=== PATIENT | female | born 1980 | race Caucasian/White ===

== ENCOUNTER → 2019-12-26 11:22 | Outpatient (BNVA) | payer OTHER, SELFPAY | PROVIDERS: PCP Internal Medicine; Visit Provider Nurse Practitioner Psychiatric/Mental Health | DX: F11.20 Opioid dependence, uncomplicated (principal); F14.10 Cocaine abuse, uncomplicated; F41.9 Anxiety disorder, unspecified | CPT/HCPCS: 99213 ==

== ENCOUNTER → 2020-01-16 14:43 | Outpatient (BNVA) | payer OTHER, SELFPAY | PROVIDERS: Visit Provider Nurse Practitioner Psychiatric/Mental Health | DX: F14.10 Cocaine abuse, uncomplicated (principal); F11.99 Opioid use, unspecified with unspecified opioid-induced disorder | CPT/HCPCS: 99213 ==

== ENCOUNTER → 2020-01-30 15:14 | Outpatient (BNVA) | payer OTHER, SELFPAY | PROVIDERS: Visit Provider Nurse Practitioner Psychiatric/Mental Health | DX: Z76.89 Persons encountering health services in other specified circumstances (principal) ==

== ENCOUNTER → 2020-02-06 14:47 | Outpatient (BNVA) | payer OTHER, SELFPAY | PROVIDERS: Visit Provider Nurse Practitioner Psychiatric/Mental Health | DX: F11.99 Opioid use, unspecified with unspecified opioid-induced disorder (principal); F14.10 Cocaine abuse, uncomplicated | CPT/HCPCS: 80305; 99212 ==

== ENCOUNTER → 2020-02-13 16:30 | Outpatient (BNVA) | payer OTHER, SELFPAY | PROVIDERS: PCP Internal Medicine; Visit Provider Nurse Practitioner Psychiatric/Mental Health | DX: Z76.89 Persons encountering health services in other specified circumstances (principal) ==

== ENCOUNTER → 2020-02-27 16:18 | Outpatient (BNVA) | payer OTHER, SELFPAY | PROVIDERS: Visit Provider Nurse Practitioner Psychiatric/Mental Health | DX: Z76.89 Persons encountering health services in other specified circumstances (principal) ==

== ENCOUNTER → 2020-03-05 15:34 | Outpatient (BNVA) | payer OTHER, SELFPAY | PROVIDERS: Visit Provider Nurse Practitioner Psychiatric/Mental Health | DX: Z76.89 Persons encountering health services in other specified circumstances (principal) ==

== ENCOUNTER → 2020-03-26 14:22 | Outpatient (BNVA) | payer OTHER, SELFPAY | PROVIDERS: Visit Provider Nurse Practitioner Psychiatric/Mental Health | DX: Z76.89 Persons encountering health services in other specified circumstances (principal) ==

== ENCOUNTER → 2020-04-02 14:02 | Outpatient (BNVA) | payer OTHER, SELFPAY | PROVIDERS: Visit Provider Nurse Practitioner Psychiatric/Mental Health | DX: F11.99 Opioid use, unspecified with unspecified opioid-induced disorder (principal) | CPT/HCPCS: 99212 ==

== ENCOUNTER → 2020-04-16 10:56 | Outpatient (BNVA) | payer OTHER, SELFPAY | PROVIDERS: Visit Provider Nurse Practitioner Psychiatric/Mental Health ==

== ENCOUNTER → 2020-04-23 15:49 | Outpatient (BNVA) | payer OTHER, SELFPAY | PROVIDERS: PCP Internal Medicine; Visit Provider Nurse Practitioner Psychiatric/Mental Health | DX: Z76.89 Persons encountering health services in other specified circumstances (principal) ==

== ENCOUNTER → 2020-05-07 14:35 | Outpatient (BNVA) | payer OTHER, SELFPAY | PROVIDERS: PCP Internal Medicine; Visit Provider Nurse Practitioner Psychiatric/Mental Health ==

== ENCOUNTER → 2020-05-21 11:45 | Outpatient (BNVA) | payer OTHER, SELFPAY | PROVIDERS: PCP Internal Medicine; Visit Provider Nurse Practitioner Psychiatric/Mental Health ==

== ENCOUNTER → 2020-06-04 13:17 | Outpatient (BNVA) | payer OTHER, SELFPAY | PROVIDERS: PCP Internal Medicine; Visit Provider Nurse Practitioner Psychiatric/Mental Health ==

== ENCOUNTER → 2020-06-22 13:32 | Outpatient (BNVA) | payer OTHER, SELFPAY | PROVIDERS: Visit Provider Nurse Practitioner Psychiatric/Mental Health | DX: F14.90 Cocaine use, unspecified, uncomplicated (principal) | CPT/HCPCS: 80305; 81025; 99211 ==

== ENCOUNTER → 2020-07-09 15:36 | Outpatient (BNVA) | payer OTHER, SELFPAY | PROVIDERS: Visit Provider Nurse Practitioner Psychiatric/Mental Health ==

== ENCOUNTER → 2020-07-23 16:37 | Outpatient (BNVA) | payer OTHER, SELFPAY | PROVIDERS: Visit Provider Nurse Practitioner Psychiatric/Mental Health ==

== ENCOUNTER → 2020-07-24 13:05 | Outpatient (BNVA) | payer OTHER, SELFPAY | PROVIDERS: Visit Provider Nurse Practitioner Psychiatric/Mental Health | DX: Z51.81 Encounter for therapeutic drug level monitoring (principal) | CPT/HCPCS: 80305; 99211 ==

== ENCOUNTER → 2020-08-06 14:39 | Outpatient (BNVA) | payer OTHER, SELFPAY | PROVIDERS: Visit Provider Nurse Practitioner Psychiatric/Mental Health ==

== ENCOUNTER → 2020-08-27 15:08 | Outpatient (BNVA) | payer OTHER, SELFPAY | PROVIDERS: Visit Provider Nurse Practitioner Psychiatric/Mental Health ==

== ENCOUNTER → 2020-09-17 15:16 | Outpatient (BNVA) | payer OTHER, SELFPAY | PROVIDERS: Visit Provider Nurse Practitioner Psychiatric/Mental Health ==

== ENCOUNTER → 2020-10-08 14:49 | Outpatient (BNVA) | payer OTHER, SELFPAY | PROVIDERS: Visit Provider Nurse Practitioner Psychiatric/Mental Health ==

== ENCOUNTER → 2020-10-15 15:28 | Outpatient (BNVA) | payer OTHER, SELFPAY | PROVIDERS: Visit Provider Nurse Practitioner Psychiatric/Mental Health | DX: F11.99 Opioid use, unspecified with unspecified opioid-induced disorder (principal); F14.10 Cocaine abuse, uncomplicated | CPT/HCPCS: 80305; 81025; 99212 ==

== ENCOUNTER → 2020-11-12 14:02 | Outpatient (BNVA) | payer OTHER, SELFPAY | PROVIDERS: Visit Provider Nurse Practitioner Psychiatric/Mental Health ==

== ENCOUNTER → 2021-01-14 15:48 | Outpatient (BNVA) | payer OTHER, SELFPAY | PROVIDERS: Visit Provider Nurse Practitioner Psychiatric/Mental Health | DX: F11.20 Opioid dependence, uncomplicated (principal); F14.10 Cocaine abuse, uncomplicated; Z51.81 Encounter for therapeutic drug level monitoring; Z79.899 Other long term (current) drug therapy | CPT/HCPCS: 80305; 99212 ==

== ENCOUNTER → 2021-02-25 15:22 | Outpatient (BNVA) | payer OTHER, SELFPAY | PROVIDERS: Visit Provider Nurse Practitioner Psychiatric/Mental Health ==

== ENCOUNTER → 2021-04-12 15:38 | Outpatient (BNVA) | payer OTHER, SELFPAY | DX: Z51.81 Encounter for therapeutic drug level monitoring (principal) | CPT/HCPCS: 80305 ==

== ENCOUNTER → 2021-06-03 14:10 | Outpatient (BNVA) | payer OTHER, SELFPAY | PROVIDERS: Visit Provider Nurse Practitioner Psychiatric/Mental Health | DX: F11.20 Opioid dependence, uncomplicated (principal) | CPT/HCPCS: 80305; 99212 ==

== ENCOUNTER → 2021-08-05 15:30 | Outpatient (BNVA) | payer OTHER, SELFPAY | PROVIDERS: Visit Provider Nurse Practitioner Psychiatric/Mental Health | DX: Z51.81 Encounter for therapeutic drug level monitoring (principal); F11.20 Opioid dependence, uncomplicated | CPT/HCPCS: 80305; 99212 ==

== ENCOUNTER → 2021-10-26 16:30 | Outpatient (BNVA) | payer OTHER, SELFPAY | PROVIDERS: Visit Provider Nurse Practitioner Psychiatric/Mental Health | DX: F11.20 Opioid dependence, uncomplicated (principal) | CPT/HCPCS: 99212 ==

== ENCOUNTER → 2022-01-19 13:03 | Outpatient (BNVA) | payer OTHER, SELFPAY | PROVIDERS: Visit Provider Nurse Practitioner Psychiatric/Mental Health | DX: Z51.81 Encounter for therapeutic drug level monitoring (principal); F11.20 Opioid dependence, uncomplicated; F14.10 Cocaine abuse, uncomplicated | CPT/HCPCS: 80305; 99212 ==

== ENCOUNTER → 2022-02-24 11:35 | Outpatient (BNVA) | payer OTHER, SELFPAY | PROVIDERS: Visit Provider Nurse Practitioner Psychiatric/Mental Health | DX: Z51.81 Encounter for therapeutic drug level monitoring (principal); F11.20 Opioid dependence, uncomplicated | CPT/HCPCS: 80305; 99212 ==

== ENCOUNTER 2022-07-12 19:49 | Emergency (ER) | payer OTHER, SELFPAY ==
--- NOTE | ~2022-07-12 | US_ITS ---
EXAMINATION: US VENOUS ULTRASOUND WITH DOPPLER LOWER EXTREMITY, BILATERAL CLINICAL INFORMATION: Edema. Pain. COMPARISON: None available. TECHNIQUE: Ultrasound of the deep veins is performed from the hip to the calf with compression sonography and color and pulse Doppler assessment. Spectral analysis with color-flow imaging is performed. FINDINGS: RIGHT: There is normal venous compression and respiratory variation and augmented flow. The visualized common femoral vein, superficial femoral vein, profunda femoral vein, popliteal vein, and the trifurcation region shows no evidence of deep venous thrombosis. There is normal vascular flow in the posterior tibial vein and the peroneal vein in the calf. There is no significant popliteal fossa cyst. LEFT: There is normal venous compression and respiratory variation and augmented flow. The visualized common femoral vein, superficial femoral vein, profunda femoral vein, popliteal vein, and the trifurcation region shows no evidence of deep venous thrombosis. There is normal vascular flow in the posterior tibial vein of the calf. The peroneal vein is not visualized. There is no significant popliteal fossa cyst. If the patient's symptoms persist, followup ultrasound in 5 days 7 days might be of value to exclude proximal propagation from a non-visualized calf vein. US/US venous duplex LE BI IMPRESSION: No DVT demonstrated in the bilateral lower extremity.
--- NOTE | ~2022-07-12 | XR_ITS ---
EXAMINATION: Bilateral knee x-ray CLINICAL INFORMATION: Pain COMPARISON: None. TECHNIQUE: 2 views of each knee FINDINGS: Right: Bone alignment is normal. No acute fracture or dislocation. Well-corticated soft tissue ossification adjacent to the inferior patella. Normal joint spaces. Question small joint effusion. Left: Bone alignment is normal. No fracture or dislocation. Normal joint spaces. Question moderate joint effusion. XR/XR knee RT 2V IMPRESSION: No fracture or dislocation. Question bilateral knee joint effusions.
--- NOTE | ~2022-07-12 | XR_ITS ---
EXAMINATION: Bilateral knee x-ray CLINICAL INFORMATION: Pain COMPARISON: None. TECHNIQUE: 2 views of each knee FINDINGS: Right: Bone alignment is normal. No acute fracture or dislocation. Well-corticated soft tissue ossification adjacent to the inferior patella. Normal joint spaces. Question small joint effusion. Left: Bone alignment is normal. No fracture or dislocation. Normal joint spaces. Question moderate joint effusion. XR/XR knee LT 2V IMPRESSION: No fracture or dislocation. Question bilateral knee joint effusions.
[2022-07-12 19:51] VITALS: BP 130/69; PULSE 87; RESP 18; TEMP 36.6; O2SAT 100; BMI 27.4
--- NOTE | 2022-07-12 19:52 | ED.EXTPRO ---
HPI - Extremity Problem General Chief complaint: Extremity Problem <ARSENIO Seo - Last Filed: 07/12/22 19:55> Stated complaint: Lower extremities swelling <ARSENIO Seo - Last Filed: 07/12/22 19:55> Time Seen by Provider: 07/12/22 23:26 <ARSENIO Seo - Last Filed: 07/12/22 19:55> Source: patient and design and sales consultant ([id number]) <Narda Byrnes MD - Last Filed: 07/13/22 01:13> Mode of arrival: ambulatory <Narda Byrnes MD - Last Filed: 07/13/22 01:13> History of Present Illness HPI Narrative: This is a 41-year-old female who comes in with worsening bilateral lower extremity edema that is painful in nature, she denies any recent trauma or travel. On questioning regarding medical history she reports that she does have heavy periods but the last 1 was in April and denies any current sexual activity. Patient reports that she does have a history of anemia as well as using intranasal heroin and cocaine. Otherwise, she denies any fever or chills. <Narda Byrnes MD - Last Filed: 07/13/22 01:13> Related Data Home medications: Home Medications Medication Instructions Recorded Confirmed naloxone 4 mg/actuation nasal spray intranasal 12/26/19 12/26/19 Previous Rx's Medication Instructions Recorded ferrous sulfate 325 mg (65 mg 325 mg PO DAILY #30 tabs 06/03/21 iron) tablet buprenorphine 8 mg-naloxone 2 mg 1 film sublingual BID #16 ea 04/04/22 sublingual film ferrous sulfate 325 mg (65 mg 325 mg PO BID #60 tabs 07/13/22 iron) tablet <ARSENIO Seo - Last Filed: 07/12/22 19:55> Allergies/Adverse reactions: Allergies Allergy/AdvReac Type Severity Reaction Status Date / Time ibuprofen [IBUPROFEN] Allergy Severe RASH Verified 02/24/22 11:48 naproxen [From Naprosyn] AdvReac Rash Verified 02/24/22 11:48 <ARSENIO Seo - Last Filed: 07/12/22 19:55> Review of Systems Review of Systems: Pertinent positives and negatives as stated in HPI <Narda Byrnes MD - Last Filed: 07/13/22 01:13> PMFSH Past Medical History Source: nursing notes reviewed <Narda Byrnes MD - Last Filed: 07/13/22 01:13> Medical History: Medical History Denial <ARSENIO Seo - Last Filed: 07/12/22 19:55> Family History Family History: Family History Mother HTN (hypertension) Diabetes Thyroid disease Other Asthma <ARSENIO Seo - Last Filed: 07/12/22 19:55> Social History Social History: Social History Alcohol intake: current Alcohol intake frequency: holidays/special occasions only Cigarettes Per Day: 10 Years Smoked: 3 Smoked in Last 30 Days: Yes Use of substances other than those prescribed or required for medical reasons: Yes Substance Use Type: Crack/Cocaine and Heroin Last Used Substance: Days (ago) Any prior treatment program specific to substance use: No Advance Directives: No Advance Directives Information Provided: Yes <ARSENIO Seo - Last Filed: 07/12/22 19:55> Physical Exam Vital Signs: Vital Signs: Last Vital Signs Temp 98 F 07/12/22 19:51 Pulse 87 07/12/22 19:51 Resp 18 07/12/22 19:51 BP 130/69 07/12/22 19:51 Pulse Ox 100 07/12/22 19:51 O2 Del Method Room Air 07/12/22 19:51 BMI result Body Mass Index 27.4 <ARSENIO Seo - Last Filed: 07/12/22 19:55> Vital Signs: Last Vital Signs Temp 98 F 07/12/22 19:51 Pulse 87 07/12/22 19:51 Resp 18 07/12/22 19:51 BP 130/69 07/12/22 19:51 Pulse Ox 100 07/12/22 19:51 O2 Del Method Room Air 07/12/22 19:51 BMI result Body Mass Index 27.4 VITAL SIGNS: Reviewed. GENERAL: Well developed, well nourished, in no acute distress. HEAD: Normocephalic/atraumatic EYES: PERRLA, EOMI, pale conjunctiva EARS: Ext canals without abnormality NOSE: Nares patent bilateral OROPHARYNX: no oral lesions noted, posterior pharynx clear, pale mucosa NECK: Supple, no adenopathy LUNGS: Normal breath sounds. No adventitious sounds or accessory muscle use. SpO2<100> CARDIOVASCULAR: Regular rate and rhythm without noted murmurs ABDOMEN: Soft, non-tender, non-distended with bowel sounds. MUSCULOSKELETAL: No tenderness, deformities, or effusions noted on gross inspection. EXTREMITIES: No cyanosis, clubbing but bilateral lower extremity edema that is minimally pitting some associated erythema to the left lower extremity but otherwise legs are with good sensation and palpable pulses SKIN: Inspection of the skin reveals no rashes, but pale NEUROLOGIC: Alert and oriented x 4. Strength and sensation to light touch were grossly intact x 4. <Narda Byrnes MD - Last Filed: 07/13/22 01:13> Course Course Course Narrative: This is an RME: Additional HPI, ROS, PE not included below will be deferred to primary provider. This is a 41-year-old female presenting to the emergency department for complaints of bilateral knee pain times a few days worsening, worse with movement better at rest. Patient also notes bilateral lower extremities have been more swollen than usual, her left lower extremity is bothering her more than her right. She does report a week ago she fell however she fell onto her bottom, no head strike or loss of consciousness. On physical exam left lower extremity is noted to have some erythema and warmth below the knee all the way to the ankle w/ a tense leg. NV status intact bl. There does appear to be 1+ nonpitting edema to bilateral lower extremities. Negative Roshan bilaterally. Plan bilateral knee x-rays and venous duplex of lower extremities. However likely cellulitis <ARSENIO Seo - Last Filed: 07/12/22 19:55> Medical Decision Making Medical Decision Making MDM Narrative: 41-year-old female with history and clinical presentation consistent with menorrhagia as well as sickle cell trait on review of [facility] records. I suspect that the bilateral lower extremity edema it may be contributed due to the anemia as well as low albumin level. I had an extensive conversation with the patient after review of all investigations demonstrates that patient is significantly anemic with hemoglobin-6.8. Although patient states that she is fatigued review of lab work demonstrates that she is not tachycardic and at this time she is adamantly declining any blood transfusion. In attempts to further investigate what some of her concerns or reservations are and she simply states I do not want the transfusion . Once again, to be clear this was all conducted via gate services supervisor [id number]. She is otherwise hemodynamically stable, she is alert and oriented x4. Imaging studies are negative for acute DVT and I placed Handy wraps to bilateral lower extremities to assist in symptomatic relief. She is otherwise discharged home with a referral to follow-up with gynecology despite patient declining the referral stating that she already has someone that she is going to follow-up with. <Narda Byrnes MD - Last Filed: 07/13/22 01:13> Differential Diagnosis Please see the discussion above <Narda Byrnes MD - Last Filed: 07/13/22 01:13> Lab Data Please see the discussion above <Narda Byrnes MD - Last Filed: 07/13/22 01:13> Result Diagrams: 07/13/22 00:14 07/13/22 00:14 <ARSENIO Seo - Last Filed: 07/12/22 19:55> Labs: Lab Results 07/13/22 07/13/22 07/13/22 Range/Units 00:14 00:14 00:14 WBC 9.3 (4.8-10.8) X10*3/uL RBC 3.88 L (4.20-5.50) X10*6/uL Hgb 6.8 L* (12.0-16.0) g/dl Hct 23.3 L (37.0-47.0) % MCV 60.1 L (80.0-98.0) fL MCH 17.5 L (27.0-33.0) pg MCHC 29.2 L (31.0-35.0) g/dl RDW 19.7 H (11.0-16.0) % Plt Count 401 H (160-400) X10*3/uL MPV 9.7 (9.4-12.3) fL Immature Gran % (Auto) 0.3 (0.0-0.4) % Neut % (Auto) 66.2 (45-73) % Lymph % (Auto) 25.2 (20-40) % [place] % (Auto) 5.8 (2-11) % Eos % (Auto) 2.1 (0-4) % Baso % (Auto) 0.4 (0-2) % Lymph # (Auto) 2.4 (1.2-4.9) X10*3/uL [place] # (Auto) 0.5 (0.1-1.2) X10*3/uL Eos # (Auto) 0.2 (0.0-0.4) X10*3/uL Baso # (Auto) 0.0 (0.0-0.2) X10*3/uL Abs Immat Gran (auto) 0.03 (0.00-0.03) X10*3/uL Absolute Neuts (auto) 6.2 (2.0-8.3) x10*3/uL Absolute Nucleated RBC 0.000 (0.0-0.012) X10*3/uL Nucleated RBC % (auto) 0.0 (0.0-0.2) /100WBC Sodium 138 (135-145) mmol/L Potassium 3.8 (3.3-5.1) mmol/L Chloride 104 (96-108) mmol/L Carbon Dioxide 28 (22-29) mmol/L Anion Gap 10 L (12-20) BUN 6 L (9-16) mg/dL Creatinine 0.52 (0.5-1.4) mg/dL Estim Creat Clear Calc 150.8 Estimated GFR > 60 Random Glucose 88 (60-115) mg/dL Calcium 8.6 (8.4-10.2) mg/dL Total Bilirubin 0.3 (0.0-1.0) mg/dL AST 38 H (5-31) U/L ALT 37 H (0-31) U/L Alkaline Phosphatase 75 (39-117) U/L Total Protein 6.6 (6.5-8.0) g/dL Albumin 3.3 L (3.5-5.0) g/dL Urine Color Yellow Urine Appearance Clear Urine pH 7.0 (5.0-9.0) Ur Specific [place] 1.010 (1.005-1.025) Urine Protein Negative (Neg-Trace) mg/dL Urine Glucose (UA) Negative (Negative) mg/dL Urine Ketones Negative (Negative) mg/dL Urine Blood Trace H (Negative) Urine Nitrite Negative (Negative) Ur Leukocyte Esterase Negative (Negative) Urine RBC 3-5 H (0-2) /HPF Urine WBC 0-5 (0-5) /HPF Ur Squamous Epith Cells 0-2 (0-2) /HPF Urine Bacteria None Seen (None Seen) Hyaline Casts 0-2 (0-2) /LPF <ARSENIO Seo - Last Filed: 07/12/22 19:55> Lab Results 07/13/22 07/13/22 07/13/22 Range/Units 00:14 00:14 00:14 WBC 9.3 (4.8-10.8) X10*3/uL RBC 3.88 L (4.20-5.50) X10*6/uL Hgb 6.8 L* (12.0-16.0) g/dl Hct 23.3 L (37.0-47.0) % MCV 60.1 L (80.0-98.0) fL MCH 17.5 L (27.0-33.0) pg MCHC 29.2 L (31.0-35.0) g/dl RDW 19.7 H (11.0-16.0) % Plt Count 401 H (160-400) X10*3/uL MPV 9.7 (9.4-12.3) fL Immature Gran % (Auto) 0.3 (0.0-0.4) % Neut % (Auto) 66.2 (45-73) % Lymph % (Auto) 25.2 (20-40) % [place] % (Auto) 5.8 (2-11) % Eos % (Auto) 2.1 (0-4) % Baso % (Auto) 0.4 (0-2) % Lymph # (Auto) 2.4 (1.2-4.9) X10*3/uL [place] # (Auto) 0.5 (0.1-1.2) X10*3/uL Eos # (Auto) 0.2 (0.0-0.4) X10*3/uL Baso # (Auto) 0.0 (0.0-0.2) X10*3/uL Abs Immat Gran (auto) 0.03 (0.00-0.03) X10*3/uL Absolute Neuts (auto) 6.2 (2.0-8.3) x10*3/uL Absolute Nucleated RBC 0.000 (0.0-0.012) X10*3/uL Nucleated RBC % (auto) 0.0 (0.0-0.2) /100WBC Sodium 138 (135-145) mmol/L Potassium 3.8 (3.3-5.1) mmol/L Chloride 104 (96-108) mmol/L Carbon Dioxide 28 (22-29) mmol/L Anion Gap 10 L (12-20) BUN 6 L (9-16) mg/dL Creatinine 0.52 (0.5-1.4) mg/dL Estim Creat Clear Calc 150.8 Estimated GFR > 60 Random Glucose 88 (60-115) mg/dL Calcium 8.6 (8.4-10.2) mg/dL Total Bilirubin 0.3 (0.0-1.0) mg/dL AST 38 H (5-31) U/L ALT 37 H (0-31) U/L Alkaline Phosphatase 75 (39-117) U/L Total Protein 6.6 (6.5-8.0) g/dL Albumin 3.3 L (3.5-5.0) g/dL Urine Color Yellow Urine Appearance Clear Urine pH 7.0 (5.0-9.0) Ur Specific [place] 1.010 (1.005-1.025) Urine Protein Negative (Neg-Trace) mg/dL Urine Glucose (UA) Negative (Negative) mg/dL Urine Ketones Negative (Negative) mg/dL Urine Blood Trace H (Negative) Urine Nitrite Negative (Negative) Ur Leukocyte Esterase Negative (Negative) Urine RBC 3-5 H (0-2) /HPF Urine WBC 0-5 (0-5) /HPF Ur Squamous Epith Cells 0-2 (0-2) /HPF Urine Bacteria None Seen (None Seen) Hyaline Casts 0-2 (0-2) /LPF <Narda Byrnes MD - Last Filed: 07/13/22 01:13> Radiology Impression Radiologist Impression: My interpretation is in agreement with radiology's impression of the imaging studies. <Narda Byrnes MD - Last Filed: 07/13/22 01:13> Chronic Conditions Patient?s care impacted by: Other <Narda Byrnes MD - Last Filed: 07/13/22 01:13> Sickle cell trait, anemia <Narda Byrnes MD - Last Filed: 07/13/22 01:13> Discharge Plan Discharge Clinical Impression: Opioid use disorder, Cocaine use disorder, Heavy menstrual bleeding, Anemia, Sickle cell trait, Swelling of both lower extremities <ARSENIO Seo - Last Filed: 07/12/22 19:55> Patient Disposition: Home, Self-Care <ARSENIO Seo - Last Filed: 07/12/22 19:55> Instructions: Leg Edema (ED), Polysubstance Abuse (ED), Menorrhagia (ED), Anemia (ED) <ARSENIO Seo - Last Filed: 07/12/22 19:55> Additional Instructions: 1. Reanudar todos los medicamentos caseros seg?n lo prescrito. Aumente la cantidad de agua que anette. 2. He enviado mick receta para suplementos de jaya a long farmacia. Por favor, tome seg?n lo prescrito. 3. Myriam un seguimiento con long proveedor de atenci?n primaria en los pr?ximos 1 o 2 d?as. 4. He proporcionado mick remisi?n a G[facility]olog?a, se encuentra a continuaci?n. Llame a la oficina ma?erika por la ma?erika y programe mick aram para mick reevaluaci?n de long menorragia. Regrese a la chuyita de emergencias si los s?ntomas empeoran. 1. Resume all home medications as prescribed. Increase the amount of water that you drink. 2. I have sent a prescription for iron supplements over to your pharmacy. Please take as prescribed. 3. Please follow-up with your primary care provider in the next 1-2 days. 4. I have provided a referral to Gynecology, it is below. Please call the office tomorrow morning and set up an appointment for re-evaluation regarding your menorrhagia. Return to the ER for any worsening symptoms. <ARSENIO Seo - Last Filed: 07/12/22 19:55> Prescriptions: New ferrous sulfate 325 mg (65 mg iron) tablet 325 mg PO BID Qty: 60 0RF No Action buprenorphine-naloxone 8-2 mg film 1 film sublingual BID Qty: 16 0RF Narcan 4 mg/actuation spray,non-aerosol intranasal ferrous sulfate 325 mg (65 mg iron) tablet 325 mg PO DAILY Qty: 30 0RF <ARSENIO Seo - Last Filed: 07/12/22 19:55> Referrals: Mak Fitch MD [Physician] - (41-year-old female with history of sickle cell trait, presents with anemia and Hgb -6.8 but refuses blood.) <ARSENIO Seo - Last Filed: 07/12/22 19:55> Stand Alone Forms: Against Medical Advice <ARSENIO Seo - Last Filed: 07/12/22 19:55> Print Language: Indonesian <ARSENIO Seo - Last Filed: 07/12/22 19:55>
[2022-07-13 00:19] LABS: Basophils Percent Auto 0.4 % (0-2); Eosinophils Absolute Auto 0.2 X10*3/uL (0.0-0.4); Eosinophils Percent Auto 2.1 % (0-4); Hematocrit 23.3 % (37.0-47.0); Imm Gran Abs Auto 0.03 X10*3/uL (0.00-0.03); Imm Gran Pct Auto 0.3 % (0.0-0.4); Lymphocytes Absolute Auto 2.4 X10*3/uL (1.2-4.9); Lymphocytes Percent Auto 25.2 % (20-40); MANUAL DIFF FLAG NO; Mean Corpuscular HGB Conc 29.2 g/dl (31.0-35.0); Mean Corpuscular Hemoglobin 17.5 pg (27.0-33.0); Mean Platelet Volume 9.7 fL (9.4-12.3); Monocytes Absolute Auto 0.5 X10*3/uL (0.1-1.2); Monocytes Percent Auto 5.8 % (2-11); Neutrophils Absolute Auto 6.2 x10*3/uL (2.0-8.3); Neutrophils Percent Auto 66.2 % (45-73); Platelet Count 401 X10*3/uL (160-400); Red Blood Count 3.88 X10*6/uL (4.20-5.50); Red Cell Distribution Width 19.7 % (11.0-16.0); White Blood Count 9.3 X10*3/uL (4.8-10.8)
[2022-07-13 00:21] LABS: Appearance Urine Clear; Color Urine Yellow; Glucose Urine UA Negative (Negative); Leukocyte Esterase Urine Negative (Negative); Nitrite Urine Negative (Negative); UMIC TRIGGER UACC YES; Urine Blood Trace (Negative); Urine Ketones Negative (Negative); Urine Protein Negative (Neg-Trace)
[2022-07-13 00:24] LABS: Mean Corpuscular Volume 60.1 fL (80.0-98.0)
[2022-07-13 00:26] LABS: Bacteria Urine None Seen (None Seen); Hyaline Casts Urine 0-2 /LPF (0-2); Squamous Epithelial Cell Urine 0-2 /HPF (0-2); WBC Urine 0-5 /HPF (0-5)
[2022-07-13 00:29] LABS: Hemoglobin 6.8 g/dl (12.0-16.0)
[2022-07-13 00:35] LABS: Alanine Aminotransferase 37 U/L (0-31); Albumin Level 3.3 g/dL (3.5-5.0); Alkaline Phosphatase 75 U/L (39-117); Anion Gap 10 (12-20); Aspartate Amino Transferase 38 U/L (5-31); Bilirubin Total 0.3 mg/dL (0.0-1.0); Blood Urea Nitrogen 6 mg/dL (9-16); Calcium 8.6 mg/dL (8.4-10.2); Carbon Dioxide 28 mmol/L (22-29); Chloride 104 mmol/L (96-108); Creatinine Clr Calc Pharmacy 150.8; Estimated Glomerular Filt Rate > 60; Glucose Random 88 mg/dL (60-115); Potassium 3.8 mmol/L (3.3-5.1); Sodium 138 mmol/L (135-145); Total Protein 6.6 g/dL (6.5-8.0)
--- NOTE | 2022-07-13 00:39 | PC.NURSE ---
provider into assess pt, bilateral extremity swollen, Dr. Johnson into wrap legs with dillan wrap to help with swelling, Will continue to monitor and follow plan of care.
--- NOTE | 2022-07-13 00:44 | PC.NURSE ---
provider into to discuss plan of care.
--- NOTE | 2022-07-13 01:03 | PC.NURSE ---
provider into discuss plan of care, pt refusing blood transfusion at this time. pt reports she will follow outpatient with providers.
--- NOTE | 2022-07-13 01:12 | PC.NURSE ---
Several attempt to convince pt to stay and receive treatment, pt refusing, partner requesting she stays for treatment. pt reports she will discuss her decision with him but wants to be discharge home.
--- NOTE | 2022-07-13 01:20 | PC.NURSE ---
Reviewed discharge instructions with pt, pt verbalized understanding and left against medical advice.
[2022-07-13 01:21] VITALS: BP 140/68; PULSE 70; RESP 16
[2022-07-13 01:24] LABS: HCG Quantitative < 2 mIU/mL
== END 2022-07-13 01:21 | disposition home or self-care (01) ==
PROVIDERS: Emergency Provider Student in an Organized Health Care Education/Training Program
DX: N92.0 Excessive and frequent menstruation with regular cycle (principal); D57.1 Sickle-cell disease without crisis; R60.0 Localized edema; M79.662 Pain in left lower leg; M79.661 Pain in right lower leg; F14.10 Cocaine abuse, uncomplicated; F11.99 Opioid use, unspecified with unspecified opioid-induced disorder; E11.9 Type 2 diabetes mellitus without complications; I10 Essential (primary) hypertension; F17.210 Nicotine dependence, cigarettes, uncomplicated; Z79.899 Other long term (current) drug therapy
CPT/HCPCS: 36415; 73560; 80053; 81001; 84702; 85025; 93970; 99284

== ENCOUNTER 2025-03-15 07:51 | Emergency (ER) | payer OTHER, SELFPAY ==
--- NOTE | 2025-03-15 | ECG_ITS ---
Test Reason : SOB Blood Pressure : */* mmHG Vent. Rate : 97 BPM Atrial Rate : 97 BPM P-R Int : 158 ms QRS Dur : 88 ms QT Int : 352 ms P-R-T Axes : 65 61 -75 degrees QTcB Int : 447 ms Normal sinus rhythm Nonspecific ST and T wave abnormality Abnormal ECG No previous ECGs available Referred By: Generic ED Physician Electronically Signed By: Jesus Meek
--- NOTE | ~2025-03-15 | XR_ITS ---
CLINICAL HISTORY: cough, sob 2 view chest Comparison: None Findings: No consolidation or pneumothorax/pleural effusion. Moderate peribronchial and interstitial thickening Cardiomediastinal silhouette is normal. No mediastinal shift or tracheal deviation. Osseous structures intact. Impression: 1. Moderate central bronchial wall thickening and interstitial thickening. 2. No airspace disease. This document has been electronically signed by: Ha Jc MD on 03/15/2025 09:01:42
--- NOTE | ~2025-03-15 | CT_ITS ---
CLINICAL HISTORY: dyspnea, IVDA CT angiography chest using contrast. 3-D postprocessing Comparison: CR - XR CHEST 2V - 03/15/25 08:19 EST Findings: There is good opacification of the main, right and left pulmonary arteries. No large central pulmonary embolus. Segmental pulmonary emboli may be obscured by motion. Normal caliber thoracic aorta and great vessels. Heart size within normal limits. RV/LV ratio normal. Shotty mediastinal lymph nodes. No lymphadenopathy. Interstitial and bronchial wall thickening. Patchy infiltrates in the upper lobes right middle lobe and lingula likely pneumonic. No pneumothorax, pleural effusions, pleural plaques or calcifications. No thyroid nodules demonstrated. No chest wall masses.No axillary adenopathy. No abnormalities are noted in the upper portions of the abdomen. Borderline splenomegaly suspected. No bony destructive processes demonstrated. Impression: 1. No large central pulmonary emboli segmental pulmonary emboli may be obscured by motion. 2. Normal caliber thoracic aorta. 3. Interstitial and airspace disease as described with bronchial wall thickening likely pneumonic. No parapneumonic effusion. Probable reactive mediastinal lymph nodes. This document has been electronically signed by: Ha Jc MD on 03/15/2025 11:06:04
[2025-03-15 08:03] VITALS: BP 166/95; PULSE 108; RESP 18; TEMP 36.7; O2SAT 96; BMI 22.1
[2025-03-15 08:20] LABS: MANUAL DIFF FLAG NO
[2025-03-15 08:24] LABS: Hematocrit 27.4 % (37.0-47.0); Hemoglobin 8.5 g/dl (12.0-16.0); Imm Gran Abs Auto 0.12 X10*3/uL (0.00-0.03); Imm Gran Pct Auto 0.8 % (0.0-0.4); Lymphocytes Absolute Auto 1.5 X10*3/uL (1.2-4.9); Mean Corpuscular HGB Conc 31.0 g/dl (31.0-35.0); Mean Corpuscular Hemoglobin 18.6 pg (27.0-33.0); Mean Corpuscular Volume 59.8 fL (80.0-98.0); NRBC Abs Auto 0.000 X10*3/uL (0.0-0.012); NRBC Pct Auto 0.0 /100WBC (0.0-0.2); Platelet Count 319 X10*3/uL (160-400); Red Blood Count 4.58 X10*6/uL (4.20-5.50); White Blood Count 14.5 X10*3/uL (4.8-10.8)
[2025-03-15 08:31] LABS: Strep A Nucleic Acid Positive (Negative)
--- NOTE | 2025-03-15 08:35 | PC.NURSE ---
Patient presents to ED from home with 10/10 abdominal/ back pain. Patients main complaint stating she cannot breathe . Patient oxygen saturation >94% on RA. Awaiting labs and CXR. 20g IV in R FA. Patient ill and pale appearing. Patient on monitor, VSS.
--- OUTSIDE RECORDS SUMMARY | 2025-03-15 08:36 | XMS_ITS | Clinical Summary ---
Author Organization [facility] Address [address] [place] [address] Care Team Providers Care Environmental Studies Professor Name Role Phone Ref, Hasnopcp Primary Care Provider Unavailabl e Allergies Active Allergy Reactions Criticality Noted Date Comments Ibuprofen Unknown 10/21/2024 Penicillins Unknown 10/21/2024 Social History Tobacco Use Types Packs/Day Years Used Date Smoking Tobacco: Never Assessed Comments Unknown Sex and Gender Information Value Date Recorded Sex Assigned at Female 10/22/2024 1:38 AM EDT Legal Sex Female 9:37 PM EDT Gender Identity Female 10/22/2024 1:38 AM EDT Sexual Orientation Not on file Last Filed Vital Signs Vital Sign Reading Time Taken Comments Blood Pressure 148/92 10/23/2024 2:40 AM EDT Pulse 84 10/23/2024 2:40 AM EDT Temperature 36.3 C (97.3 F) 10/23/2024 2:40 AM EDT Respiratory Rate 18 10/23/2024 2:40 AM EDT Oxygen Saturation 100% 10/23/2024 2:40 AM EDT Inhaled Oxygen Concentration - - Weight - - Height - - Body Mass Index - - Plan of Treatment Health Maintenance Due Date Last Done Comments Cervical Cancer Screening 1981 HIV Screening 1981 HPV and Pap Smear 1981 Hepatitis C Screening 1981 Pap Smear 1981 Varicella Vaccines (1 of 2 - 13+ 2-dose series) 1994 Hepatitis B Vaccines (1 of 3 - 19+ 3-dose series) 2000 DTaP,Tdap,and Td Vaccines (1 - Tdap) 08/04/2003 Mammogram 2021 Alcohol/Substance Use Screening 03/27/2024 Depression Screening and Follow-Up 03/27/2024 Social Drivers of Health Jacque ual Screening 03/27/2024 Influenza Vaccine (#1) 2024 COVID-19 Vaccine (1 - 2024-2 6 season) 2024 Pneumococcal Vaccine: Pediat semaj (0-5 Years) and At-Risk Patients (6-50 Years) Aged Out No longer eligible b ased on patient's age to complete this topic Insurance [address] [place] [id number] [employer] Care Teams Environmental Studies Professor Relationship Specialty Start Date End Date Ref, Wong DO NOT EDIT THIS RECORD VIA PROVIDER ON THE FLY PCP - General Tray Line Supervisor 10/22/24
--- OUTSIDE RECORDS SUMMARY | 2025-03-15 08:36 | XMS_ITS | Clinical Summary ---
Author Organization [facility] it[facility] Address [address] [place] [id number] Care Team Providers Care Risk Management Internship Name Role Phone Thu Cueto MD Primary Care Provider [phone] Allergies Active Allergy Reactions Criticality Noted Date Comments Naproxen 11/27/2012 Medications buprenorphine-na loxone (SUBOXONE) 8-2 mg per SL film [address] under the tongue. 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 05/31/2016 Iron deficiency anemia 11/27/2012 Surgical History Surgery Date Site/Laterality Comments OTHER SURGICAL HISTORY PROCEDURE: DENIES PREVIOUS SURGERY Medical History Medical History Date Comments Homeless 02/02/2018 DX:Homeless Family History Relation Name Status Comments Father Alive unknown health Mother Alive asthm, dm, anem ia, Social History Tobacco Use Types Packs/Day Years Used Date Smoking Tobacco: Every Day Smokeless Tobacco: Never Alcohol Use Standard Drinks/Week Comments Yes 0 (1 standard drink = 0.6 oz pur e alcohol) Comments Unknown Sex and Gender Information Value Date Recorded Sex Assigned at Not on file Legal Sex Female 9:30 AM EST Gender Identity Not on file Sexual Orientation Not on file Plan of Treatment Health Maintenance Due Date Last Done Comments Breast Cancer Screening 1981 DTaP,Tdap,and Td Vaccines (1 - Tdap) 2000 Hepatitis A Vaccines (1 of 2 - Risk 2-dose series) 2000 Hepatitis B Vaccines (1 of 3 - 19+ 3-dose series) 2000 Pneumococcal Vaccine: Pediat rics (0 to 5 Years) and At-Risk Patients (6 to 49 Years) (1 of 2 - PCV) 2000 Cervical Cancer Screening: P ap Smear 2002 HPV Vaccines (1 - 3-dose SCD M series) 2008 Social Influencers of Health Screening 03/13/2024 Depression Screening 03/27/2024 COVID-19 Vaccine (1 - 2024-2 6 season) 2024 Influenza Vaccine (#1) 2024 Cholesterol Screening (Lipid Panel) 07/31/2025 07/31/2020 RSV Immunization Adult Patie nts (1 - 1-dose 75+ series) 2056 HIV Screening Completed 12/25/2017 Hepatitis C Screening Completed 12/25/2017 HIB Vaccines Aged Out No longer eligi ble based on patient's age to complete this topic IPV Vaccines Aged Out No longer eligi ble based on patient's age to complete this topic MMR Vaccines Aged Out No longer eligi ble based on patient's age to complete this topic Meningococcal ACWY Vaccine Aged Out N o longer eligible based on patient's age to complete this topic Meningococcal B Vaccine Aged Out No l onger eligible based on patient's age to complete this topic RSV Immunization Patients Un july 20 months Aged Out No longer eligible b ased on patient's age to complete this topic Varicella Vaccines Aged Out No longer eligible based on patient's age to complete this topic Procedures Procedure Name Priority Date/Time Associated Diagnosis Comments LIPID PANEL Routine 07/31/2020 HEPATITIS C SCREENING Routine 12/25/2017 HIV SCREENING Routine 12/25/2017 from Last 3 Months or Most Recently Relevant to Health Maintenance Results * Lipid panel (07/31/2020) Pathologist [facility] LDL/HDL Ratio 2 0 - 4 Triglycerides 67 0 - 150 mg/dL Cholesterol 144 0 - 200 mg/dL HDL 68 >=40 mg/dL LDL Cholesterol 63 0 - 100 mg/dL Blood Venous blood specimen / Unknown Historical Provider LAB BLOOD ORDERABLES Kathryn l Result * HIV Screening (12/25/2017) Pathologist [facility] HIV Screening Abstracted Historical Provider HEALTH MAINTENANCE Final Result * Hepatitis C Screening (12/25/2017) Hepatitis C Screening Abstracted us Historical Provider HEALTH MAINTENANCE Final Result from Last 3 Months or Most Recently Relevant to Health Maintenance Care Teams Risk Management Internship Relationship Specialty Start Date End Date Thu Cueto MD PCP - General 05/26/22
--- NOTE | 2025-03-15 08:37 | PC.NURSE ---
Patient states she snorts heroin every day but has not in the last 24 hours d/t feeling unwell. Patient states she went through previous withdrawal with similar symptoms.
[2025-03-15 08:40] LABS: Alanine Aminotransferase < 6 U/L (0-31); Albumin Level 3.6 g/dL (3.5-5.0); Alkaline Phosphatase 86 U/L (39-117); Anion Gap 13 (12-20); Aspartate Amino Transferase 20 U/L (5-31); Blood Urea Nitrogen 6 mg/dL (9-16); Calcium 9.0 mg/dL (8.4-10.2); Carbon Dioxide 27 mmol/L (22-29); Chloride 101 mmol/L (96-108); Creatinine Clr Calc Pharmacy 133.0; Estimated Glomerular Filt Rate > 60; Potassium 3.4 mmol/L (3.3-5.1); Sodium 138 mmol/L (135-145); Total Protein 8.0 g/dL (6.5-8.0)
[2025-03-15 08:42] VITALS: O2SAT 94
[2025-03-15 08:49] VITALS: BP 141/93; PULSE 97; RESP 24; O2SAT 96
[2025-03-15 08:55] LABS: Troponin-I High Sensitivity < 2.7 ng/L (<3.5-17.0)
[2025-03-15 08:59] LABS: Resp Syncy Virus RNA Qual PCR NEGATIVE (Negative); SARS COV2 PCR INHOUSE NEGATIVE (Negative)
--- NOTE | 2025-03-15 09:09 | ED.GENADULT ---
HPI - General Adult General Chief complaint: Upper Respiratory Symptoms Stated complaint: CP Time Seen by Provider: 03/15/25 08:49 Source: patient, RN notes reviewed and old records reviewed Mode of arrival: ambulatory Limitations: no limitations History of Present Illness ED Provider: Jordana [facility] narrative: Patient is a 44-year-old female with history of OUD, cocaine use disorder, heavy menstrual bleeding presenting to the emergency department with complaint of shortness of breath, body aches, chest pain, congestion, sore throat. Daily heroin use of 2-3 bundles, not currently on methadone, has not used in 24 hours due to feeling unwell. Denies any vomiting, hematemesis. Denies hematochezia or melena. MD complaint: shortness of breath, body aches Related Data Home Medications ?Medication ?Instructions ?Recorded ?Confirmed naloxone 4 mg/actuation nasal spray intranasal 12/26/19 12/26/19 Previous Rx's ?Medication ?Instructions ?Recorded ferrous sulfate 325 mg (65 mg 325 mg PO DAILY #30 tabs 06/03/21 iron) tablet buprenorphine 8 mg-naloxone 2 mg 1 film sublingual BID #16 ea 04/04/22 sublingual film ferrous sulfate 325 mg (65 mg 325 mg PO BID #60 tabs 07/13/22 iron) tablet amoxicillin 500 mg capsule 500 mg PO BID strep #20 caps 03/15/25 Allergies Allergy/AdvReac Type Severity Reaction Status Date / Time ibuprofen (IBUPROFEN) Allergy Severe RASH Verified 03/15/25 08:07 naproxen (From Naprosyn) AdvReac Rash Verified 03/15/25 08:07 Review of Systems Review of Systems: as per HPI Yes all other systems are reviewed and are negative Constitutional: Constitutional: Reports as per HPI [facility] Past Medical History Medical History Denial Family History Family History Mother HTN (hypertension) Diabetes Thyroid disease Other Asthma Social History Social History (System 02/24/23 @ 13:36 by Natalee Chen) Alcohol intake: current Alcohol intake frequency: holidays/special occasions only Cigarettes Per Day: 10 Years Smoked: 3 Use of substances other than those prescribed or required for medical reasons: Yes Substance Use Type: Heroin Substance Use Frequency: Chronic Longstanding Last Used Substance: Days (ago) Advance Directives: No Advance Directives Information Provided: Yes Do you have a plan to hurt others: No Plan Physical Exam ED Vital Signs: Vital Signs - 24 hr 03/15/25 08:03 03/15/25 08:42 03/15/25 08:49 Temperature 98.1 F Pulse Rate 108 H 97 Respiratory Rate 18 24 H Blood Pressure 166/95 H 141/93 H Pulse Oximetry 96 94 96 Oxygen Delivery Method Room Air Room Air Room Air BMI result Body Mass Index 22.1 Vital signs have been reviewed and appear to be correct. Blood pressure normal. Heart rate mildly tachycardic. Respiratory rate tachypneic at times. Temperature normal. Oxygen saturation normal. Const General: cooperative and no acute distress Orientation/consciousness: oriented to person, oriented to place, oriented to time and patient oriented x3 Limitations: no limitations HENMT Head: Yes normocephalic and Yes atraumatic Ears: external ears normal General nose exam: Normal external nose present Face and sinus: Yes face symmetric Mouth: oropharynx normal and moist mucous membranes Throat: Yes uvula midline Eyes Pupils: Equal, round and reactive pupils present Neck Neck: Yes normal visual inspection and Yes supple Resp Effort & Inspection: normal respiratory effort, able to speak in complete sentences and tachypneic Auscultation: clear to auscultation bilaterally Cardio Rate: regular rate Rhythm: regular rhythm Heart sounds: S1 normal heart sound present and S2 normal heart sound present GI Palpation (GI): Soft to palpation and nontender Auscultation: normoactive bowel sounds General: Yes no CVA tenderness Back/Spine/Pelvis Back: no CVA tenderness Skin General skin exam: elasticity normal and turgor normal Neuro General: oriented to person, oriented to place, oriented to time, patient oriented x3, moves all extremities, no focal motor deficits and CN's II-XI intact bilaterally Cranial nerves: Yes Equal, round and reactive pupils present Cognition (Neuro): normal cognition Extrem General: Yes full ROM, Yes no pedal edema and Yes no calf tenderness Psych Mental Status: mental status grossly normal Affect: normal affect Thought process: Normal thought process present Medications Administered Discontinued Medications Generic Name Dose Route Start Last Admin Trade Name Freq PRN Reason Stop Dose Admin Ceftriaxone Sodium 1 gm/ 50 mls @ 100 mls/hr 03/15/25 09:08 03/15/25 09:46 Sodium Chloride IV 03/15/25 09:37 Infused ONCE ONE Infusion Acetaminophen 1,000 mg in 100 mls @ 400 mls/hr 03/15/25 09:22 03/15/25 10:21 Ofirmev IV 03/15/25 09:36 Infused ONCE ONE Infusion Iohexol 100 ml 03/15/25 09:44 03/15/25 09:44 Iohexol 350 Mg/Ml 100 Ml Infus..Btl IV 03/15/25 09:45 65 ml ONCE ONE Administration Medical Decision Making Medical Decision Making [facility] Narrative: Patient is a 44-year-old female with history of OUD, cocaine use disorder, heavy menstrual bleeding presenting to the emergency department with complaint of shortness of breath, body aches, chest pain, congestion, sore throat. On exam patient is awake, A+Ox3, slightly tachycardic, tachypneic, afebrile, normal neurological exam without focal deficits, physical exam findings as above. Given reported symptoms and physical exam findings, initial differential includes but is not limited to viral illness, covid, flu, strep pharyngitis. Given tachypnea and dyspnea, c/f PE. Will obtain CTA chest. Labs notable for anemia with H&H of 8.5/27.4, leukocytosis with left shift, negative troponin, normal lactic. X-ray chest notable for moderate central bronchial wall thickening and interstitial thickening. CTA chest notable for no evidence of large PE. My interpretation is in agreement with the radiologist's interpretation. Given pmhx, and current presentation, feel patient requires inpatient admission, however, patient now stating she wants to be discharged. Will discharge AMA on amoxicillin for strep. Patient is clinically sober, has no significant distracting injury, and they appear to have intact judgement, insight and reason. In my clinical opinion they have medical decision making capacity. Signs and symptoms discussed with patient. They express understanding of signs/symptoms as explained to them and they repeated it back to me. Risks and benefits discussed with patient to include but not limited to , termite technician disability or loss of significant bodily functions. Alternatives to treatment plan discussed and offered. Patient encouraged to return should they change their mind. Close followup strongly encouraged in case they choose not to return. The patient wants leave Against Medical Advise at this time Differential Diagnosis Differential Diagnoses: The differential diagnosis associated with the presentation includes as per [facility] Admission/Observation Consideration of admission/observation: Escalation of care including admission/observation considered Recommended-patient requesting to leave AMA Lab Data [facility] Lab Attestation statement: I reviewed the patient's lab results. as per [facility] 03/15/25 08:14 03/15/25 08:14 Labs: Lab Results 03/15/25 03/15/25 03/15/25 Range/Units 08:10 08:14 09:05 WBC 14.5 H (4.8-10.8) X10*3/uL RBC 4.58 (4.20-5.50) X10*6/uL Hgb 8.5 L D (12.0-16.0) g/dl Hct 27.4 L (37.0-47.0) % MCV 59.8 L (80.0-98.0) fL MCH 18.6 L (27.0-33.0) pg MCHC 31.0 (31.0-35.0) g/dl RDW 19.3 H (11.0-16.0) % Plt Count 319 (160-400) X10*3/uL MPV Not Reportable Immature Gran % (Auto) 0.8 H (0.0-0.4) % Neut % (Auto) 83.8 H (45-73) % Lymph % (Auto) 10.3 L (20-40) % Divide % (Auto) 4.8 (2-11) % Eos % (Auto) 0.1 (0-4) % Baso % (Auto) 0.2 (0-2) % Lymph # (Auto) 1.5 (1.2-4.9) X10*3/uL Divide # (Auto) 0.7 (0.1-1.2) X10*3/uL Eos # (Auto) 0.0 (0.0-0.4) X10*3/uL Baso # (Auto) 0.0 (0.0-0.2) X10*3/uL Abs Immat Gran (auto) 0.12 H (0.00-0.03) X10*3/uL Absolute Neuts (auto) 12.2 H (2.0-8.3) x10*3/uL Absolute Nucleated RBC 0.000 (0.0-0.012) X10*3/uL Nucleated RBC % (auto) 0.0 (0.0-0.2) /100WBC ESR (1-20) MM/HR Sodium 138 (135-145) mmol/L Potassium 3.4 (3.3-5.1) mmol/L Chloride 101 (96-108) mmol/L Carbon Dioxide 27 (22-29) mmol/L Anion Gap 13 (12-20) BUN 6 L (9-16) mg/dL Creatinine 0.53 (0.5-1.4) mg/dL Estim Creat Clear Calc 133.0 Estimated GFR > 60 Random Glucose 95 (60-115) mg/dL Lactic Acid 1.2 (0.5-2.0) mmol/L Calcium 9.0 (8.4-10.2) mg/dL Total Bilirubin 0.8 (0.0-1.0) mg/dL AST 20 (5-31) U/L ALT < 6 (0-31) U/L Alkaline Phosphatase 86 (39-117) U/L Troponin I High Sens < 2.7 (<3.5-17.0) ng/L C-Reactive Protein 13.43 H (< or = 0.50) mg/dL Total Protein 8.0 (6.5-8.0) g/dL Albumin 3.6 (3.5-5.0) g/dL Influenza Type A (PCR) POSITIVE A (Negative) Influenza Type B (PCR) NEGATIVE (Negative) RSV RNA Qual (PCR) NEGATIVE (Negative) SARS-CoV-2 RNA (RT-PCR) NEGATIVE (Negative) S. pyogenes GrpA VIVIANA Positive A (Negative) Blood Type A Positive Antibody Screen NEGATIVE 03/15/25 Range/Units 11:02 WBC (4.8-10.8) X10*3/uL RBC (4.20-5.50) X10*6/uL Hgb (12.0-16.0) g/dl Hct (37.0-47.0) % MCV (80.0-98.0) fL MCH (27.0-33.0) pg MCHC (31.0-35.0) g/dl RDW (11.0-16.0) % Plt Count (160-400) X10*3/uL MPV Immature Gran % (Auto) (0.0-0.4) % Neut % (Auto) (45-73) % Lymph % (Auto) (20-40) % Divide % (Auto) (2-11) % Eos % (Auto) (0-4) % Baso % (Auto) (0-2) % Lymph # (Auto) (1.2-4.9) X10*3/uL Divide # (Auto) (0.1-1.2) X10*3/uL Eos # (Auto) (0.0-0.4) X10*3/uL Baso # (Auto) (0.0-0.2) X10*3/uL Abs Immat Gran (auto) (0.00-0.03) X10*3/uL Absolute Neuts (auto) (2.0-8.3) x10*3/uL Absolute Nucleated RBC (0.0-0.012) X10*3/uL Nucleated RBC % (auto) (0.0-0.2) /100WBC ESR 83 H (1-20) MM/HR Sodium (135-145) mmol/L Potassium (3.3-5.1) mmol/L Chloride (96-108) mmol/L Carbon Dioxide (22-29) mmol/L Anion Gap (12-20) BUN (9-16) mg/dL Creatinine (0.5-1.4) mg/dL Estim Creat Clear Calc Estimated GFR Random Glucose (60-115) mg/dL Lactic Acid (0.5-2.0) mmol/L Calcium (8.4-10.2) mg/dL Total Bilirubin (0.0-1.0) mg/dL AST (5-31) U/L ALT (0-31) U/L Alkaline Phosphatase (39-117) U/L Troponin I High Sens (<3.5-17.0) ng/L C-Reactive Protein (< or = 0.50) mg/dL Total Protein (6.5-8.0) g/dL Albumin (3.5-5.0) g/dL Influenza Type A (PCR) (Negative) Influenza Type B (PCR) (Negative) RSV RNA Qual (PCR) (Negative) SARS-CoV-2 RNA (RT-PCR) (Negative) S. pyogenes GrpA VIVIANA (Negative) Blood Type Antibody Screen Independent Interpretation I performed an independent interpretation of an: Plain X-Ray and CT Scan Interpretation: X-ray chest notable for moderate central bronchial wall thickening and interstitial thickening. CTA chest notable for no evidence of large PE. Radiology Impression Discussion of test interpretation with radiology: I have reviewed the radiologist's reading. Radiologist Impression: Impression: 1. No large central pulmonary emboli segmental pulmonary emboli may be obscured by motion. 2. Normal caliber thoracic aorta. 3. Interstitial and airspace disease as described with bronchial wall thickening likely pneumonic. No parapneumonic effusion. Probable reactive mediastinal lymph nodes. 2 view chest Comparison: None Findings: No consolidation or pneumothorax/pleural effusion. Moderate peribronchial and interstitial thickening Cardiomediastinal silhouette is normal. No mediastinal shift or tracheal deviation. Osseous structures intact. Impression: 1. Moderate central bronchial wall thickening and interstitial thickening. 2. No airspace disease. External Record Review External record reviewed: Inpatient record, Office record and Outpatient record Prescription Management I considered prescription management with: Antibiotic Critical Care Time Critical Care Time Critical Care Time: Yes Total Critical Care Time: 45 Attestation: I have personally provided critical care time exclusive of time spent on separately billable procedures. Time includes review of lab data, radiology results, discussion with consultants, and monitoring for potential decompensation. Intervention performed as documented. Discharge Plan Discharge Clinical Impression: Influenza, Acute streptococcal pharyngitis, Anemia Patient Disposition: Left Against Medical Advice Instructions: Strep Throat (DC), Influenza (DC), Anemia (ED) Additional Instructions: You were evaluated in the emergency department today for shortness of breath. You tested positive for influenza A as well as strep pharyngitis. Influenza is a viral illness which will resolve on its own over time. You are being treated with a course of antibiotics for the strep pharyngitis which is a bacterial infection. Complete the full course of antibiotics as prescribed even if your symptoms improve. Your CT scan did not show evidence of a blood clot in your lungs. Your red blood cell count was very low today. We recommend that you follow up with your primary care provider within the next 2 days for repeat labs. We recommend that you take 650my of Tylenol every 6 hours as needed for fever or discomfort. You are leaving the emergency department against medical advice. The risks of leaving including worsening illness, sepsis, up to and including . Should you change your mind you can return to the emergency department at any time. Prescriptions: New amoxicillin 500 mg capsule 500 mg PO BID Qty: 20 0RF No Action buprenorphine-naloxone 8-2 mg film 1 film sublingual BID Qty: 16 0RF ferrous sulfate 325 mg (65 mg iron) tablet 325 mg PO BID Qty: 60 0RF Narcan 4 mg/actuation spray,non-aerosol intranasal ferrous sulfate 325 mg (65 mg iron) tablet 325 mg PO DAILY Qty: 30 0RF Stand Alone Forms: Against Medical Advice Print Language: Macedonian
[2025-03-15] MEDS: iohexoL 350 MG/ML 100 ML INFUS..BTL IV (09:44)
[2025-03-15 11:55] VITALS: BP 114/68; PULSE 88; RESP 18; TEMP 36.8; O2SAT 92
[2025-03-15 12:07] VITALS: BP 124/77; PULSE 90; RESP 18; TEMP 36.9; O2SAT 98
--- NOTE | 2025-03-15 12:11 | PC.NURSE ---
Patient expressing urge to leave d.t feeling better. Patient advised from provider and RN that this is against medical advise and education provided on consequences of leaving. Patient willing to wait for AMA forms and discharge packet and signed them appropriately.
== END 2025-03-15 12:13 | disposition left against medical advice (07) ==
PROVIDERS: Registered Nurse Emergency; Emergency Provider Emergency Medicine
DX: J10.1 Influenza due to other identified influenza virus with other respiratory manifestations (principal); J02.0 Streptococcal pharyngitis; D64.9 Anemia, unspecified; R06.02 Shortness of breath; M79.10 Myalgia, unspecified site; R07.9 Chest pain, unspecified; F11.90 Opioid use, unspecified, uncomplicated
CPT/HCPCS: 36415; 71046; 71275; 80053; 83605; 84484; 85025; 85652; 86140; 86850; 86900; 86901; 87040; 87637; 87651; 93005; 96365; 96367; 99285; J0131; J0696; Q9967

== ENCOUNTER → 2025-03-15 07:56 | Outpatient (BNV) | payer OTHER, SELFPAY | PROVIDERS: Emergency Provider Emergency Medicine; Visit Provider Internal Medicine Cardiovascular Disease | DX: R94.31 Abnormal electrocardiogram [ECG] [EKG] (principal); R06.02 Shortness of breath | CPT/HCPCS: 93010 ==

== ENCOUNTER → 2025-03-15 08:19 | Outpatient (BNV) | payer OTHER, SELFPAY | PROVIDERS: Emergency Provider Emergency Medicine; Visit Provider Radiology Diagnostic Radiology | DX: R06.00 Dyspnea, unspecified (principal); J98.09 Other diseases of bronchus, not elsewhere classified | CPT/HCPCS: 71046; 71275 ==